=== PATIENT | female | born 1990 | race Hispanic/Latino ===

== ENCOUNTER 2016-09-23 21:41 | Emergency (ER) | payer BC ==
[2016-09-23 21:54] VITALS: BP 122/74; PULSE 78; RESP 18; TEMP 98.1; O2SAT 99
[2016-09-23] MEDS ORDERED: TDAP Vaccine 0.5 mL Syr IM ONE (22:02)
--- NOTE | 2016-09-23 22:07 | ED PDOC ---
Arrival/HPI - General Chief Complaint: Lower Extremity Problem/Injury Time Seen by Provider: 09/23/16 22:02 Historian: Patient - History of Present Illness Narrative History of Present Illness (Text): 09/23/16 22:04 This 25 yo female present to this ED c/o left plantar foot puncture wound x [employer]. Patient stated a safety needle puncture her shoe into her foot. Last tetanus is UKN. Patient denies or allergies. Denies other complains. Time/Duration: Prior to Arrival Context: Walking Past Medical History - Provider Review Nursing Documentation Reviewed: Yes - Psychiatric Hx Substance Use: No Family/Social History - Physician Review Nursing Documentation Reviewed: Yes Family/Social History: No Known Family HX Smoking Status: no Hx Alcohol Use: No Hx Substance Use: No Allergies/Home Meds Allergies/Adverse Reactions: Allergies No Known Allergies Allergy (Verified 09/23/16 21:54) Review of Systems - Review of Systems Constitutional: Normal. absent: Fatigue, Weight Change, Fevers Eyes: Normal ENT: Normal Respiratory: Normal Cardiovascular: Normal Gastrointestinal: Normal Genitourinary Female: Normal Musculoskeletal: Other (left foot puncture wound) Skin: Normal Neurological: Normal Endocrine: Normal Hemo/Lymphatic: Normal Psychiatric: Normal Physical Exam Vital Signs Temp Pulse Resp BP Pulse Ox 09/23/16 21:49 98.1 F 78 18 122/74 99 Temperature: Afebrile Blood Pressure: Normal Pulse: Regular Respiratory Rate: Normal Appearance: Positive for: Well-Appearing, Non-Toxic, Comfortable Pain Distress: None Mental Status: Positive for: Alert and Oriented X 3 - Systems Exam Head: Present: Atraumatic, Normocephalic Pupils: Present: PERRL Extroacular Muscles: Present: EOMI Conjunctiva: Present: Normal Mouth: Present: Moist Mucous Membranes Upper Extremity: Present: Normal Inspection, Normal ROM, NORMAL PULSES, Neurovascularly Intact, Capillary Refill < 2s Lower Extremity: Present: Normal Inspection, NORMAL PULSES, Normal ROM, Neurovascularly Intact, Capillary Refill < 2 s, Other (Puncture too small to be seen). No: Edema, CALF TENDERNESS, Cyanosis, Mary's Sign, Tenderness, Swelling , Erythema, Temperature Abnormalties Neurological: Present: GCS=15, CN II-XII Intact, Speech Normal, Motor Func Grossly Intact, Normal Sensory Function, Normal Cerebellar Funct, Gait Normal Skin: Present: Warm, Dry, Normal Color. No: Rashes Psychiatric: Present: Alert, Oriented x 3 Medical Decision Making ED Course and Treatment: 09/23/16 22:07 Patient came c/o puncture wound left foot. Pin penetrated shoe, and punct Re-evaluation Time: 22:18 Reassessment Condition: Re-examined - Medication Orders Current Medication Orders: Discontinued Medications Ciprofloxacin (Cipro) 500 mg PO ONCE STA PRN Reason: Protocol Stop: 09/23/16 22:03 Tetanus/Reduced Diphtheria/Acell Pertussis (Boostrix Vaccine Inj) 0.5 ml IM .ONCE ONE Stop: 09/23/16 22:03 Disposition/Present on Arrival - Present on Arrival Any Indicators Present on Arrival: No History of DVT/PE: No History of Uncontrolled Diabetes: No Urinary Catheter: No History of Decub. Ulcer: No History Surgical Site Infection Following: None - Disposition Have Diagnosis and Disposition been Completed?: Yes Diagnosis: Puncture wound of foot Disposition: HOME/ ROUTINE Disposition Time: 22:19 Patient Plan: Discharge Patient Problems: Current Active Problems Problem Status Onset Puncture wound of foot Acute Condition: GOOD Discharge Instructions (ExitCare): Puncture Wound (ED) Additional Instructions: Call private doctor for follow up visit in 1-2 days. Take medication as instructed. Avoid excessive exercise. Return to emergency if wound becomes infected, redness or discharge Prescriptions: Ciprofloxacin [Cipro] 500 mg PO BID #14 tab
== END 2016-09-23 22:32 | disposition home or self-care (01) ==
LOC: ED 21:41
DX: S91.332A Puncture wound without foreign body, left foot, initial encounter (principal); W22.8XXA Striking against or struck by other objects, initial encounter; Y93.01 Activity, walking, marching and hiking; Z23 Encounter for immunization